=== PATIENT | male | born 1975 | race Hispanic/Latino ===

== ENCOUNTER 2023-10-25 23:18 | Emergency (ER) | payer OTHER ==
[~2023-10-25] VITALS: Ht 177.8 cm; Wt 120.2 kg
[2023-10-25] MEDS: MORPHINE 4 MG SYG IM ONE (23:50)
[2023-10-26 01:43] VITALS: BP 108/58; PULSE 82; RESP 17; O2SAT 95
== END 2023-10-26 02:00 | disposition home or self-care (01) ==
LOC: EDH 23:18
DX: R51.9 Headache, unspecified (principal); M54.2 Cervicalgia; I10 Essential (primary) hypertension; E11.9 Type 2 diabetes mellitus without complications; E78.00 Pure hypercholesterolemia, unspecified; Z04.3 Encounter for examination and observation following other accident
CPT/HCPCS: 99285; 70450; 71045; 72125; 96372; J2270